=== PATIENT | female | born 1950 | race Caucasian/White ===

== ENCOUNTER 2022-02-28 10:31 | Outpatient (CLI) | payer MEDICARE, OTHER, SELFPAY ==
--- NOTE | 2022-02-28 11:00 | XR_ITS ---
WS: [id number] Exam: XR lumbar spine f/e only [id number] Date/Time of Exam: 02/28/2022 11:09 AM Reason For Exam: FALL/ACUTE LOW BACK PAIN No fracture or dislocation noted. Degenerative disc changes at all levels but most severe at L5-S1. M ild spondylosis. Facet arthropathy at all levels. No significant flexion or extension instability is demonstrated. Posterior bone spurring seen at the lower endplate of L1. XR/XR lumbar spine f/e only [id number] IMPRESSION: 1. No fracture or malalignment. No flexion or extension instability. 2. Moderately advanced degenerative disc changes most marked at L5-S1.
== END 2022-02-28 10:32 | disposition home or self-care (01) ==
PROVIDERS: Visit Provider Family Medicine
DX: M47.897 Other spondylosis, lumbosacral region (principal); M54.50 Low back pain, unspecified
CPT/HCPCS: 72120

== ENCOUNTER 2022-03-06 14:15 | Outpatient (CLI) | payer MEDICARE, OTHER, SELFPAY ==
--- NOTE | 2022-03-06 14:47 | XRR_ITS ---
PROCEDURE INFORMATION: Exam: XR Cervical Spine Exam date and time: 03/06/2022 2:59 PM Age: 72 years old Clinical indication: Injury or trauma; Fall; Blunt trauma; Injury details: History--pt fell x 1 wk ago. Neck pain in posterior side; Additional info: Neck pain/unspecified fall TECHNIQUE: Imaging protocol: Radiologic exam of the cervical spine. Views: 2 or 3 views. COMPARISON: No relevant prior studies available. FINDINGS: Bones/joints: Vertebral body height is maintained. No subluxation. Bones are diffusely osteopenic. Multilevel degenerative changes of varying severity in the visualized spine. 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 Soft tissues: No prevertebral soft tissue swelling. There are also subtle linear lucencies in the C6 and C7 vertebral bodies seen on the lateral image, it is uncertain whether this could be due to artifact from overlying soft tissues versus age-indeterminate vertebral body fractures. Lungs: Visualized lungs are clear. Vasculature: Atherosclerotic changes in the visualized arteries. XR/XR cervical spine 3V* [id number] IMPRESSION: 1. 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 2. There are also subtle linear lucencies in the C6 and C7 vertebral bodies seen on the lateral image, it is uncertain whether this could be due to artifact from overlying soft tissues versus age-indeterminate vertebral body fractures. CT scan of the cervical spine is recommended for further evaluation.Soft tissues: No radiopaque foreign body. 3. Multilevel degenerative changes of varying severity in the visualized spine. 4. Incidental/nonacute findings are listed in the report.
== END 2022-03-06 14:16 | disposition home or self-care (01) ==
LOC: RAD 14:36
PROVIDERS: PCP Family Medicine; Visit Provider Family Medicine
DX: S12.690A Other displaced fracture of seventh cervical vertebra, initial encounter for closed fracture (principal); W19.XXXA Unspecified fall, initial encounter; M47.892 Other spondylosis, cervical region; M54.2 Cervicalgia
CPT/HCPCS: 72040

== ENCOUNTER 2022-03-07 09:40 | Outpatient (CLI) | payer MEDICARE, OTHER, SELFPAY ==
--- NOTE | 2022-03-07 09:47 | CT_ITS ---
WS: [id number] CT CERVICAL SPINE TECHNIQUE: Noncontrast CT of the cervical spine with coronal and sagittal reformatted images. CLINICAL INFORMATION: NECK PAIN COMPARISON: March 06, 2022 radiograph DLP: 243.[address] scans at [facility] use at least one of these dose optimization techniques: automated e xposure control; mA and/or kV adjustment per patient size (includes targeted exams where dose is matc hed to clinical indication); or iterative reconstruction. FINDINGS: Mild cervical curve. Mild spondylitic changes. Disc osteophyte complexes worse at C5-C6 and C6-C7. En dplate osteophytic ridging. Chronic well-corticated C7 spinous process fracture corresponds to findin gs on the radiograph. No acute fractures. Slight fibrosis in the lung apices. Mild carotid bulb calci fication. C2-C3: Normal. C3-C4: Mild disc osteophyte ridging. Mild RIGHT foraminal narrowing. Moderate facet arthropathy. Tiny shallow central disc bulging. Mild central canal stenosis. C4-C5: Disc osteophyte complex with endplate ridging. Moderate facet arthropathy. Mild bilateral bony foraminal narrowing. C5-C6: Disc osteophyte complex with uncovertebral joint hypertrophy. Severe bilateral bony foraminal narrowing. Mild central canal stenosis. Moderate facet arthropathy. C6-C7: Disc osteophyte complex with endplate ridging. Uncovertebral joint hypertrophy. Severe bilater al bony foraminal narrowing. Mild central canal stenosis. C7-T1: No significant disc bulging. Spinal canal and foramen are patent. Visualized posterior nasopharynx: Normal. Prevertebral soft tissues: Normal. CT/CT cervical spin wo con* [id number] IMPRESSION: 1. No acute fractures. 2. Chronic well-corticated mid C7 spinous process fracture as seen on the radi ograph. 3. Spondylitic changes worse at C5-C6 and C6-C7 with mild central canal stenos is and severe bilateral bony foraminal narrowing.
== END 2022-03-07 09:41 | disposition home or self-care (01) ==
PROVIDERS: PCP Family Medicine; Visit Provider Nurse Practitioner Family
DX: S12.600A Unspecified displaced fracture of seventh cervical vertebra, initial encounter for closed fracture (principal); M47.812 Spondylosis without myelopathy or radiculopathy, cervical region; M48.02 Spinal stenosis, cervical region; M25.78 Osteophyte, vertebrae; X58.XXXA Exposure to other specified factors, initial encounter
CPT/HCPCS: 72125

== ENCOUNTER → 2022-03-30 09:31 | Outpatient (BNVA) | payer MEDICARE, OTHER, SELFPAY | PROVIDERS: PCP Family Medicine; Visit Provider Orthopaedic Surgery | DX: M47.22 Other spondylosis with radiculopathy, cervical region (principal) | CPT/HCPCS: 99203; 99204 ==

== ENCOUNTER 2022-04-20 10:14 | Emergency (ER) | payer MEDICARE, OTHER, SELFPAY ==
--- NOTE | 2022-04-20 10:32 | XR_ITS ---
WS: [id number] Exam: XR shoulder RT min 2V* [id number] Date/Time of Exam: 04/20/2022 10:34 AM Reason For Exam: trauma There is a comminuted fracture of the surgical neck and head of the humerus. There is avulsion of the greater tuberosity. No other fractures are noted. No dislocation. Hypertrophic spurring along the in ferior margin of the distal clavicle and acromion. Normal soft tissues. XR/XR shoulder RT min 2V* [id number] IMPRESSION: 1. Comminuted fracture of the surgical neck and head of the humerus. Mild media l displacement of the humeral neck. No dislocation.
--- NOTE | 2022-04-20 10:32 | XR_ITS ---
WS: [id number] Exam: [place] [id number] Date/Time of Exam: 04/20/2022 10:34 AM Reason For Exam: trauma Comminuted fracture of the surgical neck and head of the humerus is noted. Mild medial displacement o f the humeral neck. The remainder of the humerus is intact. No dislocation. XR/[place] [id number] IMPRESSION: 1. Comminuted fracture the proximal humerus as noted above. The remainder of th e humerus is intact.
[2022-04-20 10:34] VITALS: BP 172/65; PULSE 64; RESP 18; O2SAT 98
[2022-04-20 10:35] VITALS: BP 178/60; PULSE 72; RESP 18; TEMP 36.7; O2SAT 98
[2022-04-20 10:37] VITALS: PULSE 65
--- NOTE | 2022-04-20 10:56 | ED_ITS ---
HPI - Extremity Problem General: Chief complaint: Extremity Injury, Upper Stated complaint: fall,shoulder/arm pain Time Seen by Provider: 04/20/22 10:15 Source: patient Mode of arrival: ambulatory History of Present Illness: 70-year-old female presents emergency room from home. She is try to get something out of a closet off and upper shelf lost her balance started to fall she caught her self with outstretched hands broke part of her fall with her left hand then went down on an outstretched right arm is complaining of pain that she localizes to the shoulder. She is able to move at the elbow and the wrist. She is not able to extend or AB duct at all at the shoulder. Denies striking her head no loss of consciousness no neck or head injury. She said she felt a popping heard a popping sensation in her right shoulder. MD Complaint: joint pain Onset (ago): minute(s) Pain Consistency: constant Location: right and upper extremity (Shoulder) Quality: sharp Radiation: proximal Associated symptoms: Deny arthralgias, chest pain, fever(s), myalgias, rash or short of breath Review of Systems Const: Denies: fever(s), chills, fatigue or malaise ENMT: Denies: throat pain, ear or mastoid pain, nasal discharge or nasal congestion Card: Denies: chest pain or palpitations Resp: Denies: dyspnea, productive cough or non-productive cough GI: Denies: abdominal pain, nausea, vomiting, hematemesis, coffee ground emesis, diarrhea, constipation, bloating, hematochezia or melena : Denies: flank pain, difficulty voiding, dysuria, urinary frequency or urinary urgency Musc: Reports: joint pain (Right shoulder) Skin/Breast: Denies: rash or pruritus PFS ED PFSH: Social History (Updated 04/20/22 @ 10:58 by Indra Michelle DO) Smoking and tobacco status: current every day smoker Physical Exam Const: COMMON NORMALS: no acute distress GENERAL APPEARANCE: cooperative and comfortable ORIENTATION/CONSCIOUSNESS: Yes awake, Yes oriented to person, Yes oriented to place and Yes oriented to time HENMT: COMMON NORMALS: normocephalic, atraumatic and hearing grossly normal bilaterally HEAD & SCALP: normocephalic and atraumatic Eye: COMMON NORMALS: Equal, round and reactive pupils present, EOMs intact bilaterally, conjunctivae normal and no scleral icterus CONJUNCTIVA: Yes conjunctivae normal PUPIL: Yes Equal, round and reactive pupils present Neck/C-Spine: COMMON NORMALS: full ROM, no lymphadenopathy, supple and no JVD Resp: COMMON NORMALS: normal respiratory effort, No retractions, No use of accessory muscles and clear to auscultation bilaterally AUSCULTATION: clear to auscultation bilaterally Cardio: COMMON NORMALS: no JVD, regular rate, regular rhythm and No murmurs present (Cardio) RATE: regular rate RHYTHM: regular rhythm GI: COMMON NORMALS: Soft to palpation and No hepatosplenomegaly present AUSCULTATION: Yes normoactive bowel sounds PALPATION: Yes Soft to palpation, No Tenderness to palpation present (GI), No Guarding due to palpation present (GI) and Yes No hepatosplenomegaly present Extremity: OTHER: Right upper extremity examined on palpation the right shoulder is exquisitely painful and believes she has an anterior shoulder dislocation no pain with palpation of the humerus at the elbow forearm or wrist neurovascularly distally she is intact. Cervical spine cleared on physical exam. Neuro: SENSORIUM/ORIENTATION: Yes oriented to person, Yes oriented to place and Yes oriented to time Skin: COMMON NORMALS: no rashes or lesions noted GENERAL SKIN EXAM: no rashes or lesions noted Course Vital Signs: Vital signs: Vital Signs Temperature 98.0 F 04/20/22 10:35 Pulse Rate 65 04/20/22 10:37 Respiratory Rate 16 04/20/22 11:03 Blood Pressure 178/60 04/20/22 10:35 Pulse Oximetry 100 04/20/22 11:03 Oxygen Delivery Me thod 04/20/22 10:35 MDM - Extremity (Nontraumatic) Medical Decision Making Proximal humerus fracture. Shoulder immobilizer referral to Ortho pain medicines. Discussed with the patient. Medical Records I reviewed the patient's medical records. Lab Data I reviewed the patient's lab results. Radiology Impressions Humerus X-Ray 04/20/22 10:32 IMPRESSION: 1. Comminuted fracture the proximal humerus as noted above. The remainder of the humerus is intact. Shoulder X-Ray 04/20/22 10:32 IMPRESSION: 1. Comminuted fracture of the surgical neck and head of the humerus. Mild medial displacement of the humeral neck. No dislocation. Discharge Plan Discharge Patient Disposition: Home Clinical Impression: Fracture of humerus Prescriptions: New hydrocodone-acetaminophen 5-325 mg tablet 1 tab PO Q6H PRN (Reason: pain) Qty: 20 0RF No Action No Known Home Medications Discharge Orders: Discharge ED (Routine); Ordered 04/20/22 Ordered By: Indra Michelle Referrals: Alondra Gibbs DO [Primary Care Provider] - Discharge Diet: Usual diet Discharge Activity: Limit activity as instructed Patient Instructions: Opioid Safety, Pain Management Activity Restrictions/Additional Instructions: Found to have a proximal humerus fracture. These fractures are treated by immobilization with a shoulder immobilizer and early follow-up with orthopedics along with early physical therapy. Use pain medicine prescribed wear shoulder immobilizer except when bathing. Do not move at the shoulder until released by orthopedics. 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
[2022-04-20] MEDS: ondansetron 2 mg/ML SDV 2 mL 4 MG IVP (11:01)
[2022-04-20 11:03] VITALS: RESP 16; O2SAT 100
[2022-04-20] MEDS: morphine 4 mg/mL SDV 1 mL IVP (11:03)
== END 2022-04-20 11:30 | disposition home or self-care (01) ==
PROVIDERS: Emergency Provider Family Medicine; PCP Family Medicine
DX: S42.291A Other displaced fracture of upper end of right humerus, initial encounter for closed fracture (principal); S42.211A Unspecified displaced fracture of surgical neck of right humerus, initial encounter for closed fracture; F17.210 Nicotine dependence, cigarettes, uncomplicated; W19.XXXA Unspecified fall, initial encounter
CPT/HCPCS: 73030; 73060; 99283; J2270; J2405

== ENCOUNTER 2022-04-26 10:43 | Outpatient (CLI) | payer MEDICARE, OTHER, SELFPAY | END 2022-04-26 10:44 | disposition home or self-care (01) | LOC: SPT 10:44 | PROVIDERS: PCP Family Medicine; Visit Provider Orthopaedic Surgery | DX: Z46.89 Encounter for fitting and adjustment of other specified devices (principal); S42.301D Unspecified fracture of shaft of humerus, right arm, subsequent encounter for fracture with routine healing; X58.XXXD Exposure to other specified factors, subsequent encounter | CPT/HCPCS: 23600; 97760; A4565 ==

== ENCOUNTER 2022-05-05 01:00 | Outpatient (CLI) | payer MEDICARE, OTHER, SELFPAY | END 2022-05-05 23:00 | disposition home or self-care (01) | LOC: RAD 06-12 21:32 | PROVIDERS: PCP Family Medicine; Visit Provider Nurse Practitioner Family | DX: S42.211A Unspecified displaced fracture of surgical neck of right humerus, initial encounter for closed fracture (principal); X58.XXXA Exposure to other specified factors, initial encounter | CPT/HCPCS: 73030; 99214 ==

== ENCOUNTER 2022-05-29 12:06 | Outpatient (CLI) | payer MEDICARE, OTHER, SELFPAY ==
--- NOTE | 2022-05-29 13:00 | MR_ITS ---
WS: [id number] MRI CERVICAL SPINE NONCONTRAST TECHNIQUE: Sagittal T1, T2 and STIR imaging. Axial T2, gradient, and fiesta imaging. CLINICAL INFORMATION: neck pain COMPARISON: CT cervical March 07, 2022 FINDINGS: Straightening of the normal cervical lordosis. Mild disc bulging worse at C5-C6 and C6-C7. Cord signa l is normal. C2-C3: Mild facet arthropathy. Spinal canal and foramen are patent. C3-C4: Mild disc osteophyte complex with endplate ridging. Mild facet arthropathy. Mild RIGHT and no significant LEFT foraminal narrowing. C4-C5: Mild disc osteophytic ridging. Slight effacement of ventral thecal sac. Moderate facet arthrop athy. Mild bilateral bony foraminal narrowing LEFT greater than RIGHT. C5-C6: Disc osteophyte complex with endplate ridging. Mild central canal stenosis with slight indenta tion on cervical cord. Moderate to severe bilateral bony foraminal narrowing. Moderate facet arthropa thy. C6-C7: Disc osteophyte complex with endplate ridging. Shallow central protrusion with mild central ca nal stenosis. Moderate to severe bilateral bony foraminal narrowing. C7-T1: Disc osteophyte complex eccentric to the LEFT. Mild LEFT and no significant RIGHT foraminal na rrowing. Spinal canal is patent. Visualized brain stem structures: Normal. Prevertebral soft tissues: Normal. MR/MR cervical spin wo con* [id number] IMPRESSION: 1. Straightening of the normal cervical lordosis. Cord signal is normal. 2. Mild central canal stenosis C5-C6 and C6-C7 due to small disc osteophyte co mplexes/protrusions. 3. Disc osteophyte complex C5-C6 with indentation on cervical cord and mild ce ntral canal stenosis. 4. Moderate to severe bilateral bony foraminal narrowing C5-C6 and C6-C7. 5. Multilevel mild to moderate facet arthropathy described above.
== END 2022-05-29 12:07 | disposition home or self-care (01) ==
LOC: RAD 12:08
PROVIDERS: PCP Family Medicine; Visit Provider Orthopaedic Surgery
DX: M48.02 Spinal stenosis, cervical region (principal); M25.78 Osteophyte, vertebrae; M47.812 Spondylosis without myelopathy or radiculopathy, cervical region
CPT/HCPCS: 72141

== ENCOUNTER → 2022-06-08 08:36 | Outpatient (BNVA) | payer MEDICARE, OTHER, SELFPAY | PROVIDERS: PCP Family Medicine; Visit Provider Orthopaedic Surgery | DX: M48.02 Spinal stenosis, cervical region (principal) | CPT/HCPCS: 99214 ==

== ENCOUNTER → 2022-06-09 09:36 | Outpatient (BNVA) | payer MEDICARE, OTHER, SELFPAY | PROVIDERS: PCP Family Medicine; Visit Provider Nurse Practitioner Family | DX: S42.201A Unspecified fracture of upper end of right humerus, initial encounter for closed fracture (principal); X58.XXXA Exposure to other specified factors, initial encounter | CPT/HCPCS: 73030; 99024; 99213 ==

== ENCOUNTER → 2022-07-14 09:06 | Outpatient (BNVA) | payer MEDICARE, OTHER, SELFPAY | PROVIDERS: PCP Family Medicine; Visit Provider Nurse Practitioner Family | DX: S42.291A Other displaced fracture of upper end of right humerus, initial encounter for closed fracture (principal); X58.XXXA Exposure to other specified factors, initial encounter | CPT/HCPCS: 73030; 99214 ==

== ENCOUNTER → 2022-07-18 09:27 | Outpatient (BNVA) | payer MEDICARE, OTHER, SELFPAY | PROVIDERS: PCP Family Medicine; Visit Provider Orthopaedic Surgery | DX: M47.22 Other spondylosis with radiculopathy, cervical region (principal) | CPT/HCPCS: 99214 ==

== ENCOUNTER 2022-08-04 09:23 | Outpatient (RCR) | payer MEDICARE, OTHER, SELFPAY | END 2022-09-01 23:59 | disposition home or self-care (01) | LOC: SPT 09:23 | PROVIDERS: PCP Family Medicine; Visit Provider Nurse Practitioner Family | DX: S42.309D Unspecified fracture of shaft of humerus, unspecified arm, subsequent encounter for fracture with routine healing (principal); X58.XXXD Exposure to other specified factors, subsequent encounter | CPT/HCPCS: 97110; 97162 ==

== ENCOUNTER 2022-08-04 09:23 | Outpatient (RCR) | payer MEDICARE, OTHER, SELFPAY | END 2022-09-01 23:59 | disposition home or self-care (01) | LOC: SPT 09:23 | PROVIDERS: PCP Family Medicine; Visit Provider Orthopaedic Surgery | DX: M47.22 Other spondylosis with radiculopathy, cervical region (principal) | CPT/HCPCS: 97110; 97161 ==

== ENCOUNTER → 2022-08-08 10:30 | Outpatient (BNVA) | payer MEDICARE, OTHER, SELFPAY | PROVIDERS: PCP Family Medicine; Referring Provider Orthopaedic Surgery; Visit Provider Anesthesiology Pain Medicine | DX: M47.22 Other spondylosis with radiculopathy, cervical region (principal); M79.601 Pain in right arm; M79.602 Pain in left arm | CPT/HCPCS: 99204 ==

== ENCOUNTER → 2022-08-29 13:09 | Outpatient (BNVA) | payer MEDICARE, OTHER, SELFPAY | PROVIDERS: PCP Family Medicine; Visit Provider Anesthesiology Pain Medicine | DX: M54.12 Radiculopathy, cervical region (principal) | CPT/HCPCS: 62321; J1100 ==

== ENCOUNTER 2022-09-02 06:00 | Outpatient (RCR) | payer MEDICARE, OTHER, SELFPAY | END 2022-10-01 23:59 | disposition home or self-care (01) | LOC: SPT 06:00 | PROVIDERS: PCP Family Medicine; Visit Provider Nurse Practitioner Family | DX: S42.309D Unspecified fracture of shaft of humerus, unspecified arm, subsequent encounter for fracture with routine healing (principal); X58.XXXD Exposure to other specified factors, subsequent encounter | CPT/HCPCS: 97110 ==

== ENCOUNTER → 2022-09-05 10:18 | Outpatient (BNVA) | payer MEDICARE, OTHER, SELFPAY | PROVIDERS: PCP Family Medicine; Visit Provider Orthopaedic Surgery | DX: M47.22 Other spondylosis with radiculopathy, cervical region (principal); M25.511 Pain in right shoulder | CPT/HCPCS: 99213 ==

== ENCOUNTER → 2022-09-12 12:45 | Outpatient (BNVA) | payer MEDICARE, OTHER, SELFPAY | PROVIDERS: PCP Family Medicine; Visit Provider Anesthesiology Pain Medicine | DX: M54.12 Radiculopathy, cervical region (principal) | CPT/HCPCS: 62321; J1100 ==

== ENCOUNTER → 2022-09-20 13:13 | Outpatient (BNVA) | payer MEDICARE, OTHER, SELFPAY | PROVIDERS: PCP Family Medicine; Referring Provider Orthopaedic Surgery; Visit Provider Orthopaedic Surgery | DX: Z96.653 Presence of artificial knee joint, bilateral (principal); Z96.642 Presence of left artificial hip joint | CPT/HCPCS: 73502; 73560; 73565; 99202 ==

== ENCOUNTER → 2022-09-26 10:41 | Outpatient (BNVA) | payer MEDICARE, OTHER, SELFPAY | PROVIDERS: PCP Family Medicine; Visit Provider Anesthesiology Pain Medicine | DX: M47.22 Other spondylosis with radiculopathy, cervical region (principal) | CPT/HCPCS: 99214 ==

== ENCOUNTER 2022-10-02 06:00 | Outpatient (RCR) | payer MEDICARE, OTHER, SELFPAY | END 2022-10-13 23:59 | disposition home or self-care (01) | LOC: SPT 06:00 | PROVIDERS: PCP Family Medicine; Visit Provider Nurse Practitioner Family | DX: M47.22 Other spondylosis with radiculopathy, cervical region (principal) | CPT/HCPCS: 97110 ==

== ENCOUNTER → 2022-10-10 13:50 | Outpatient (BNVA) | payer MEDICARE, OTHER, SELFPAY | PROVIDERS: PCP Family Medicine; Visit Provider Anesthesiology Pain Medicine | DX: M47.812 Spondylosis without myelopathy or radiculopathy, cervical region (principal) | CPT/HCPCS: 64490; 64491; 64492; J3490 ==

== ENCOUNTER → 2022-10-23 13:15 | Outpatient (BNVA) | payer MEDICARE, OTHER, SELFPAY | PROVIDERS: PCP Family Medicine; Visit Provider Podiatrist Foot & Ankle Surgery | DX: M21.611 Bunion of right foot (principal); M20.41 Other hammer toe(s) (acquired), right foot; L60.3 Nail dystrophy; M21.41 Flat foot [pes planus] (acquired), right foot; M21.42 Flat foot [pes planus] (acquired), left foot; M19.071 Primary osteoarthritis, right ankle and foot | CPT/HCPCS: 73630; 99204 ==

== ENCOUNTER → 2022-10-31 09:05 | Outpatient (BNVA) | payer MEDICARE, OTHER, SELFPAY | PROVIDERS: PCP Family Medicine; Visit Provider Anesthesiology Pain Medicine | DX: M47.22 Other spondylosis with radiculopathy, cervical region (principal) | CPT/HCPCS: 99214 ==

== ENCOUNTER → 2022-11-14 12:39 | Outpatient (BNVA) | payer MEDICARE, OTHER, SELFPAY | PROVIDERS: PCP Family Medicine; Visit Provider Anesthesiology Pain Medicine | DX: M47.812 Spondylosis without myelopathy or radiculopathy, cervical region (principal) | CPT/HCPCS: 64633; 64634; J1030 ==

== ENCOUNTER → 2022-12-12 09:58 | Outpatient (BNVA) | payer MEDICARE, OTHER, SELFPAY | PROVIDERS: PCP Family Medicine; Visit Provider Anesthesiology Pain Medicine | DX: M47.22 Other spondylosis with radiculopathy, cervical region (principal); M47.812 Spondylosis without myelopathy or radiculopathy, cervical region; M48.02 Spinal stenosis, cervical region | CPT/HCPCS: 99214 ==

== ENCOUNTER → 2023-01-30 14:11 | Outpatient (BNVA) | payer MEDICARE, OTHER, SELFPAY | PROVIDERS: PCP Family Medicine; Visit Provider Anesthesiology Pain Medicine | DX: M47.812 Spondylosis without myelopathy or radiculopathy, cervical region (principal) | CPT/HCPCS: 64490; 64491; 64492; J3490 ==

== ENCOUNTER → 2023-02-14 10:01 | Outpatient (BNVA) | payer MEDICARE, OTHER, SELFPAY | PROVIDERS: PCP Family Medicine; Visit Provider Anesthesiology Pain Medicine | DX: M47.22 Other spondylosis with radiculopathy, cervical region | CPT/HCPCS: 99214 ==

== ENCOUNTER → 2023-03-06 14:18 | Outpatient (BNVA) | payer MEDICARE, OTHER, SELFPAY | PROVIDERS: PCP Family Medicine; Visit Provider Anesthesiology Pain Medicine | DX: M47.812 Spondylosis without myelopathy or radiculopathy, cervical region (principal) | CPT/HCPCS: 64633; 64634; J1030 ==

== ENCOUNTER → 2023-03-19 12:47 | Outpatient (BNVA) | payer MEDICARE, OTHER, SELFPAY | PROVIDERS: PCP Family Medicine; Visit Provider Anesthesiology Pain Medicine | DX: M79.18 Myalgia, other site (principal); M47.22 Other spondylosis with radiculopathy, cervical region | CPT/HCPCS: 20553; 99213; J1030; J3490 ==

== ENCOUNTER → 2023-04-19 09:32 | Outpatient (BNVA) | payer MEDICARE, OTHER, SELFPAY | PROVIDERS: PCP Family Medicine; Visit Provider Anesthesiology Pain Medicine | DX: M47.22 Other spondylosis with radiculopathy, cervical region; M48.02 Spinal stenosis, cervical region | CPT/HCPCS: 99214 ==

== ENCOUNTER → 2023-05-21 10:20 | Outpatient (BNVA) | payer MEDICARE, OTHER, SELFPAY | PROVIDERS: PCP Family Medicine; Visit Provider Anesthesiology Pain Medicine | DX: M47.22 Other spondylosis with radiculopathy, cervical region; M48.02 Spinal stenosis, cervical region | CPT/HCPCS: 99214 ==

== ENCOUNTER 2023-06-13 13:36 | Outpatient (RCR) | payer MEDICARE, OTHER, SELFPAY | END 2023-07-04 23:59 | disposition home or self-care (01) | LOC: SPT 13:36 | PROVIDERS: PCP Family Medicine; Visit Provider Anesthesiology Pain Medicine | DX: M25.519 Pain in unspecified shoulder (principal) | CPT/HCPCS: 97113; 97161 ==

== ENCOUNTER → 2023-06-21 09:02 | Outpatient (BNVA) | payer MEDICARE, OTHER, SELFPAY | PROVIDERS: PCP Family Medicine; Visit Provider Anesthesiology Pain Medicine | DX: M19.011 Primary osteoarthritis, right shoulder; M47.22 Other spondylosis with radiculopathy, cervical region; M48.02 Spinal stenosis, cervical region; M47.812 Spondylosis without myelopathy or radiculopathy, cervical region | CPT/HCPCS: 20610; 99214; J1030; J3490 ==

== ENCOUNTER 2023-07-05 06:00 | Outpatient (RCR) | payer MEDICARE, OTHER, SELFPAY | END 2023-07-27 23:59 | disposition home or self-care (01) | LOC: SPT 06:00 | PROVIDERS: PCP Family Medicine; Visit Provider Anesthesiology Pain Medicine | DX: M47.816 Spondylosis without myelopathy or radiculopathy, lumbar region (principal) | CPT/HCPCS: 97113; 97530 ==

== ENCOUNTER → 2023-07-24 08:46 | Outpatient (BNVA) | payer MEDICARE, OTHER, SELFPAY | PROVIDERS: PCP Family Medicine; Visit Provider Anesthesiology Pain Medicine | DX: M47.22 Other spondylosis with radiculopathy, cervical region (principal); M48.02 Spinal stenosis, cervical region | CPT/HCPCS: 99214 ==

== ENCOUNTER 2023-08-21 08:03 | Outpatient (CLI) | payer MEDICARE, OTHER, SELFPAY ==
--- NOTE | 2023-08-21 08:45 | MR_ITS ---
WS: [id number] MRI LUMBAR SPINE NONCONTRAST HISTORY: M54.16 - Radiculopathy, lumbar region COMPARISON: None available. TECHNIQUE: Sagittal and axial multisequence imaging is submitted. L1 retrolisthesis by 2.2 mm. Disc spaces are very mildly narrowed and desiccated. No fractures or marrow edema. Conus terminates normally at L1-2 disc level. L1-L2: Mild osteophytic ridging and disc bulging with ligamentum flavum and facet arthritis. There is mild disc and osteophyte encroachment upon the subarticular recesses. Focal LEFT subarticular recess disc protrusion. Combination of findings resulting in mild central, bilateral subarticular recess an d foraminal stenosis. Slightly greater contact on the traversing LEFT L2 nerve root. L2-L3: Mild annular disc bulging and osteophytic ridging. Small LEFT paracentral disc protrusion exte nds just below the disc level. Mild facet and ligamentum flavum arthritis. Mild bilateral subarticula r recess and foraminal stenosis. L3-L4: Mild annular disc bulging with very minimal contact on the traversing L4 nerve roots. Mild fac et arthritis. Mild LEFT foraminal stenosis. L4-L5: Diffuse annular disc bulging with osteophytic ridging. Mild facet and ligamentum flavum hypert rophy. Very slight narrowing of the RIGHT subarticular recess. Mild RIGHT foraminal stenosis. L5-S1: Mild annular disc bulging with facet arthritis. No significant stenosis. Paravertebral soft tissues are negative. IMPRESSION: 1. No acute lumbar spine fracture. 2. Slight retrolisthesis of L1. 3. L1-2: Mild central, bilateral subarticular recess and foraminal stenosis. Slightly greater contac t on the traversing LEFT L2 nerve root. 4. L2-3: Mild bilateral subarticular recess and foraminal stenosis. 5. L3-4: Very minimal disc contact on the traversing L4 nerve roots and mild LEFT foraminal stenosis . 6. L4-5: Mild RIGHT foraminal and subarticular recess stenosis at L4-5.
== END 2023-08-21 08:04 | disposition home or self-care (01) ==
LOC: RAD 08:03
PROVIDERS: PCP Family Medicine; Visit Provider Anesthesiology Pain Medicine
DX: M54.16 Radiculopathy, lumbar region (principal); M43.16 Spondylolisthesis, lumbar region; M48.061 Spinal stenosis, lumbar region without neurogenic claudication
CPT/HCPCS: 72148

== ENCOUNTER → 2023-08-22 10:45 | Outpatient (BNVA) | payer MEDICARE, OTHER, SELFPAY | PROVIDERS: PCP Family Medicine; Visit Provider Anesthesiology Pain Medicine | DX: M47.22 Other spondylosis with radiculopathy, cervical region; M48.02 Spinal stenosis, cervical region | CPT/HCPCS: 99214 ==

== ENCOUNTER → 2023-08-27 10:43 | Outpatient (BNVA) | payer MEDICARE, OTHER, SELFPAY | PROVIDERS: PCP Family Medicine; Referring Provider Anesthesiology Pain Medicine; Visit Provider Specialist | DX: S42.201D Unspecified fracture of upper end of right humerus, subsequent encounter for fracture with routine healing; X58.XXXD Exposure to other specified factors, subsequent encounter | CPT/HCPCS: 73030; 99204 ==

== ENCOUNTER → 2023-09-19 09:51 | Outpatient (BNVA) | payer MEDICARE, OTHER, SELFPAY | PROVIDERS: PCP Family Medicine; Visit Provider Podiatrist Foot & Ankle Surgery | DX: M20.41 Other hammer toe(s) (acquired), right foot; M20.42 Other hammer toe(s) (acquired), left foot; L60.3 Nail dystrophy; M21.41 Flat foot [pes planus] (acquired), right foot; M21.42 Flat foot [pes planus] (acquired), left foot; M21.619 Bunion of unspecified foot; M19.071 Primary osteoarthritis, right ankle and foot; M19.072 Primary osteoarthritis, left ankle and foot | CPT/HCPCS: 73630; 99213 ==

== ENCOUNTER → 2023-09-24 08:52 | Outpatient (BNVA) | payer MEDICARE, OTHER, SELFPAY | PROVIDERS: PCP Family Medicine; Visit Provider Anesthesiology Pain Medicine | DX: M47.22 Other spondylosis with radiculopathy, cervical region (principal); M54.50 Low back pain, unspecified | CPT/HCPCS: 99214 ==

== ENCOUNTER 2023-10-23 15:12 | Outpatient (CLI) | payer MEDICARE, OTHER, SELFPAY ==
--- NOTE | 2023-10-23 16:45 | MR_ITS ---
WS: [id number] MRI RIGHT SHOULDER NONCONTRAST TECHNIQUE: Sagittal T2, coronal T1, T2 and proton density imaging. Axial gradient PDE imaging. CLINICAL INFORMATION: right shoulder pain, previous fracture COMPARISON: Radiograph 08/27/2023 FINDINGS: Moderate to advanced arthritis AC joint with moderate downsloping acromion. Degenerative edema at the AC joint. Slight subacromial spurring. Prior healed fracture deformity at the humeral neck unchanged since the prior radiograph. Small amount of residual edema at the healed fracture site. Mild narrowi ng of the subacromial space. Chronic thinning of the supraspinatus tendon distally with tendinopathy. Small intrasubstance and undersurface tear distal supraspinatus. Normal infraspinatus. Normal teres minor. Subscapularis appears intact. Tiny biceps tendon or remnant in the bicipital groove. Tiny intra-artic ular biceps tendon. Moderate degenerative narrowing of the glenohumeral articulation. Normal bone marrow signal in the gl enoid. Degenerative fraying of the glenoid labrum. Somewhat diminutive joint capsule with thickening along the axillary recess. Recommend correlation for adhesive capsulitis. MR/MR shoulder RT wo con* [id number] IMPRESSION: 1. Healed fracture deformity involving the humeral neck unchanged since the pr ior radiograph. Small amount of residual edema at the fracture site. No evidenc e of new or acute fracture. 2. Moderate degenerative arthritis AC joint with slight subacromial spurring a nd narrowing of the subacromial space. 3. Tendinopathy supraspinatus with chronic thinning and small intrasubstance a nd undersurface tears. No tendon retraction. 4. Tiny biceps tendon within the bicipital groove. 5. Visibly small shoulder capsule with thickening along the axillary recess. R ecommend correlation for adhesive capsulitis.
== END 2023-10-23 15:13 | disposition home or self-care (01) ==
LOC: RAD 15:13
PROVIDERS: PCP Family Medicine; Visit Provider Specialist
DX: M19.011 Primary osteoarthritis, right shoulder (principal); M25.711 Osteophyte, right shoulder; S42.201P Unspecified fracture of upper end of right humerus, subsequent encounter for fracture with malunion
CPT/HCPCS: 73221

== ENCOUNTER → 2023-10-24 08:33 | Outpatient (BNVA) | payer MEDICARE, OTHER, SELFPAY | PROVIDERS: PCP Family Medicine; Visit Provider Anesthesiology Pain Medicine | DX: M47.22 Other spondylosis with radiculopathy, cervical region (principal); M48.02 Spinal stenosis, cervical region; M54.50 Low back pain, unspecified | CPT/HCPCS: 99214 ==

== ENCOUNTER 2023-10-29 08:22 | Emergency (ER) | payer MEDICARE, OTHER, SELFPAY ==
[2023-10-29 08:29] VITALS: BP 154/89; PULSE 85; RESP 16; TEMP 36.7; O2SAT 96
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
[2023-10-29] MEDS: methylPREDNISolone sod succ 125 mg/2 mL INJ IVP (08:37)
[2023-10-29] MEDS: diphenhydrAMINE 50 mg/mL SDV 1mL IVP (08:37)
[2023-10-29] MEDS: famotidine 20 mg/2 mL INJ 40 MG IVP (08:38)
[2023-10-29 09:30] VITALS: BP 150/77; PULSE 67; O2SAT 95
[2023-10-29] MEDS: dexamethasone 10 mg/mL INJ IVP (09:55)
[2023-10-29 10:03] VITALS: BP 138/76; PULSE 62; O2SAT 96
== END 2023-10-29 10:04 | disposition home or self-care (01) ==
PROVIDERS: Emergency Provider Emergency Medicine; PCP Family Medicine
DX: L25.9 Unspecified contact dermatitis, unspecified cause (principal); L50.9 Urticaria, unspecified; Z87.891 Personal history of nicotine dependence
CPT/HCPCS: 96374; 96375; 99284; J1100; J1200; J2919; J3490

== ENCOUNTER → 2023-11-13 10:30 | Outpatient (BNVA) | payer MEDICARE, OTHER, SELFPAY | PROVIDERS: PCP Family Medicine; Visit Provider Anesthesiology Pain Medicine | DX: M25.552 Pain in left hip (principal); M54.2 Cervicalgia; M54.9 Dorsalgia, unspecified; M47.22 Other spondylosis with radiculopathy, cervical region | CPT/HCPCS: 73502; 99214 ==

== ENCOUNTER → 2023-12-10 08:45 | Outpatient (BNVA) | payer MEDICARE, OTHER, SELFPAY | PROVIDERS: PCP Family Medicine; Visit Provider Specialist | DX: M19.011 Primary osteoarthritis, right shoulder (principal) | CPT/HCPCS: 99213 ==

== ENCOUNTER → 2023-12-11 08:05 | Outpatient (BNVA) | payer MEDICARE, OTHER, SELFPAY | PROVIDERS: PCP Family Medicine; Visit Provider Orthopaedic Surgery | DX: M54.9 Dorsalgia, unspecified (principal); M54.50 Low back pain, unspecified | CPT/HCPCS: 72110; 99214 ==

== ENCOUNTER → 2023-12-26 09:44 | Outpatient (BNVA) | payer MEDICARE, OTHER, SELFPAY | PROVIDERS: PCP Family Medicine; Visit Provider Podiatrist Foot & Ankle Surgery | DX: L60.3 Nail dystrophy; M21.611 Bunion of right foot; M21.612 Bunion of left foot; M20.41 Other hammer toe(s) (acquired), right foot; M21.41 Flat foot [pes planus] (acquired), right foot; M21.42 Flat foot [pes planus] (acquired), left foot; M19.071 Primary osteoarthritis, right ankle and foot | CPT/HCPCS: 99213 ==

== ENCOUNTER 2023-12-27 08:45 | Outpatient (CLI) | payer MEDICARE, OTHER, SELFPAY ==
--- NOTE | 2023-12-27 08:45 | MR_ITS ---
WS: [id number] MRI LUMBAR SPINE NONCONTRAST TECHNIQUE: Sagittal T1, T2 and STIR imaging. Axial T1 and T2 imaging. CLINICAL INFORMATION: low back pain COMPARISON: MRI 08/21/2023 FINDINGS: Mild lumbar curve. Disc space narrowing L1-2 and L5-S1. Slight retrolisthesis L1 on L2. L1-L2: Slight retrolisthesis. Mild disc bulging. Mild facet arthropathy. Foramen are patent. Slight n arrowing of the LEFT subarticular recess. L2-L3: Mild annular bulging. Mild facet arthropathy. Mild RIGHT foraminal narrowing. Slight narrowing of the LEFT subarticular recess. L3-L4: Mild annular bulging. Mild facet arthropathy. Mild LEFT foraminal narrowing. L4-L5: Mild annular bulging. Impingement RIGHT subarticular recess and traversing RIGHT L5 nerve root . Foramen are patent. Mild facet arthropathy. L5-S1: Shallow central protrusion. Mild facet arthropathy. Slight effacement of the ventral thecal sa c. Spinal canal and foramen are patent. Visualized pelvic bony structures: Normal. Paravertebral soft tissues: Normal. RIGHT renal cysts. MR/MR lumbar spine wo con* [id number] IMPRESSION: No remarkable changes compared to previous 1. Mild lumbar curve. No acute compression. No high-grade central canal stenos is. 2. Narrowing of the LEFT L1-2 and LEFT L2-3 subarticular recess similar to pre vious. 3. Mild annular bulging L4-5 with narrowing of the RIGHT greater than LEFT sub articular recess unchanged. 4. Shallow disc bulging L5-S1 with slight effacement of the ventral thecal sac and slight encroachment on the LEFT S1 nerve root unchanged. 5. Small LEFT foraminal protrusion L3-4 with mild LEFT foraminal narrowing unc hanged 6. Mild to moderate facet arthropathy L3-L5.
== END 2023-12-27 08:46 | disposition home or self-care (01) ==
PROVIDERS: PCP Family Medicine; Visit Provider Orthopaedic Surgery
DX: M99.63 Osseous and subluxation stenosis of intervertebral foramina of lumbar region (principal); M47.896 Other spondylosis, lumbar region; M54.16 Radiculopathy, lumbar region
CPT/HCPCS: 72148

== ENCOUNTER → 2024-01-15 08:27 | Outpatient (BNVA) | payer MEDICARE, OTHER, SELFPAY | PROVIDERS: PCP Family Medicine; Visit Provider Orthopaedic Surgery | DX: Z09 Encounter for follow-up examination after completed treatment for conditions other than malignant neoplasm (principal); M47.819 Spondylosis without myelopathy or radiculopathy, site unspecified | CPT/HCPCS: 95910; 99214 ==

== ENCOUNTER → 2024-02-18 08:54 | Outpatient (BNVA) | payer MEDICARE, OTHER, SELFPAY | PROVIDERS: PCP Family Medicine; Visit Provider Specialist | DX: M19.011 Primary osteoarthritis, right shoulder (principal) | CPT/HCPCS: 99213 ==

== ENCOUNTER 2024-03-16 10:49 | Emergency (ER) | payer MEDICARE, OTHER, SELFPAY ==
[2024-03-16 10:57] VITALS: BP 134/92; PULSE 79; RESP 15; TEMP 36.7; O2SAT 96; BMI 33.7
[2024-03-16] MEDS: methylPREDNISolone sod succ 125 mg/2 mL INJ IM (11:31)
[2024-03-16] MEDS: diphenhydrAMINE 50 mg/mL SDV 1mL IM (11:34)
[2024-03-16 11:36] VITALS: BP 145/89; PULSE 76; RESP 18; O2SAT 95
[2024-03-16 11:58] VITALS: BP 135/90; PULSE 70; O2SAT 96
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
== END 2024-03-16 12:01 | disposition home or self-care (01) ==
PROVIDERS: Emergency Provider Emergency Medicine; PCP Family Medicine
DX: T78.40XA Allergy, unspecified, initial encounter (principal); X58.XXXA Exposure to other specified factors, initial encounter
CPT/HCPCS: 96372; 99284; J1200; J2919

== ENCOUNTER → 2024-04-02 09:57 | Outpatient (BNVA) | payer MEDICARE, OTHER, SELFPAY | PROVIDERS: PCP Family Medicine; Visit Provider Podiatrist Foot & Ankle Surgery | DX: M20.41 Other hammer toe(s) (acquired), right foot; M20.42 Other hammer toe(s) (acquired), left foot; M21.612 Bunion of left foot; M21.611 Bunion of right foot; R73.09 Other abnormal glucose | CPT/HCPCS: 99213 ==

== ENCOUNTER → 2024-04-17 08:32 | Outpatient (BNVA) | payer MEDICARE, OTHER, SELFPAY | PROVIDERS: PCP Family Medicine; Visit Provider Podiatrist Foot & Ankle Surgery | DX: M20.41 Other hammer toe(s) (acquired), right foot (principal); M79.671 Pain in right foot; M21.611 Bunion of right foot | CPT/HCPCS: 20550; 28010; 28011 ==

== ENCOUNTER → 2024-05-15 09:08 | Outpatient (BNVA) | payer MEDICARE, OTHER, SELFPAY | PROVIDERS: PCP Family Medicine; Visit Provider Podiatrist Foot & Ankle Surgery | DX: M25.871 Other specified joint disorders, right ankle and foot (principal); M20.41 Other hammer toe(s) (acquired), right foot; M79.671 Pain in right foot; M24.574 Contracture, right foot; M21.612 Bunion of left foot; M21.611 Bunion of right foot | CPT/HCPCS: 99214 ==

== ENCOUNTER → 2024-05-30 07:36 | Day surgery (SDC) | payer MEDICARE, OTHER, SELFPAY ==
[2024-05-30] VITALS (8 sets, daily range): BP systolic 97–157; BP diastolic 55–95; PULSE 63–83; RESP 16–18; TEMP 36.1–36.4; O2SAT 94–100
--- NOTE | 2024-05-30 | XR_ITS ---
WS: [id number] Right foot, C-arm fluoroscopy, 05/30/2024 Clinical Data: CHASITY PICS Comparison: None. Findings: C-arm fluoroscopy views of the right first metatarsal and right great toe XR/XR foot RT 2V [id number] Impression: Fluoroscopic views of the right first metatarsal and right great toe.
[2024-05-30] MEDS: sodium chloride 0.9% 1,000 ML 30 ML IV (08:12)
[2024-05-30] MEDS: gabapentin 300 mg Capsule PO (08:15)
[2024-05-30] MEDS: CELEcoxib 200 mg Capsule 400 MG PO (08:15)
--- NOTE | 2024-05-30 08:16 | P.OP_ITS ---
Operative Report Date of procedure: May 30, 2024 Pre-op diagnosis: Hammer toe of right foot M20.41 Foot pain, right M79.671 Hammertoe of right foot M20.41 Contracture, right foot M24.574 Post-op diagnosis: Hammer toe of right foot M20.41 Foot pain, right M79.671 Hammertoe of right foot M20.41 Contracture, right foot M24.574 Procedure done: 1) right second hammertoe correction. CPT code 52316 2) right fourth hammertoe correction. CPT code 79680 3) right fifth hammertoe correction. CPT code 41175 4) right second flexor digitorum longus tendon transfer to extensor digitorum brevis. CPT code 82587 5) right third flexor digitorum longus tendon transfer to extensor digitorum brevis. CPT code 28518 Implants: 4-0 Vicryl, 4-0 nylon Specimens removed/disposition: None Pathology: none Surgeon: Terence Dale DPM Line Department Supervisor: Tonio Patrick Estimated blood loss: 2 See intraoperative documentation. IV fluids: See intraoperative documentation Urine output: 0 Complications: None Brief History: 74-year-old female with history of toe arthritis presenting with complaints of hammertoe deformities in the right foot's second, fourth, and fifth toes. The patient experiences pain and reduced toe flexibility, particularly when wearing work boots. There is notable arthritis affecting the joints, contributing to stiffness and discomfort. Currently, the remaining toe joints require surgical attention due to mobility impairment and subsequent pressure symptoms caused by hammertoe. 1. Hammertoe Surgical correction of hammertoe deformities on the right foot is planned for the second, fourth, and fifth toes. The procedure will utilize implants to m aintain correct alignment. The patient was informed of surgical recovery expectations and the aim to resolve footwear-related discomfort. The plan is to proceed with surgery on May 30, with considerations for not taking methylphenidate a week prior to surgery. 2. Arthritis Of Toe Joint Surgical intervention is recommended due to joint stiffness and arthritis, which limit non-surgical treatment efficacy. The patient is scheduled for outpatient surgery to straighten the toes and alleviate the symptoms associated with arthritis. The patient was advised of the need for extensive recovery and the possibility of a challenging post-operative period. - Discontinue methylphenidate one week before surgery. - Prepare for a recovery period of six weeks post-surgery. - For the first two weeks post-surgery, prioritize rest and minimize activity. - Transition to walking in stiff boots after two weeks or as advised by the care team. - Follow pre-surgery fasting instructions - no food or drink after midnight before the procedure. - Plan post-operative assistance for daily activities due to limited mobility. - Expect a call to confirm surgery details on May 29. The decision to proceed with surgical correction of the patient's right foot hammertoe deformities is based on the severity of symptoms such as stiffness, pain, and occupational restrictions due to improper toe alignment. Conservative methods, including tendon release, were deemed inadequate due to arthritic joint changes. Surgical intervention will provide definitive correction and improve the patient's functional capacity, allowing for a return to desired activities by the spring. The surgery is considered necessary to address both arthritic involvement and the structural deformity. Careful scheduling post- holiday seasons aligns with the patient's lifestyle needs and preferences. Adequate pain management and post-operative care have been factored into the recovery plan, ensuring an optimal outcome. I reviewed at length with the patient, the risks, potential complications, benefits, alternatives, expectations, and typical outcomes associated with the surgery. The risks and potential complications were explained in detail, including but not limited to infection, wound dehiscence or soft tissue complications, bleeding and hematoma, chronic edema, neuritis or nerve damage producing numbness or chronic pain, CRPS, failure to relieve pain or worsening pain, thick / painful / unsightly scar, limited motion / stiffness, malposition, delayed union, malunion, or nonunion, fracture, reaction to implants, anesthetic complications, venous thromboembolism, and deformity recurrence. I discussed the notion of no regrets with the patient as it pertains to complications and outcomes. The patient seemed to understand the nature of the proposed care and required convalescence. They asked appropriate questions, answered to their satisfaction. They are aware no guarantees can be made as to a satisfactory outcome and they understand there may be other possible unforeseen complications or outcomes not listed here that will be treated accordingly if they arise. There were no written or implied guarantees given to the patient. They gave informed consent to proceed. Procedure: 1) right second hammertoe correction. CPT code 22217 2) right fourth hammertoe correction. CPT code 83604 3) right fifth hammertoe correction. CPT code 51640 4) right second flexor digitorum longus tendon transfer to extensor digitorum brevis. CPT code 37950 5) right third flexor digitorum longus tendon transfer to extensor digitorum brevis. CPT code 11993
--- NOTE | 2024-05-30 08:16 | P.HPUD_ITS ---
Surgery/Procedure H&P Update DATE OF PROCEDURE: May 30, 2024 DATE H&P PERFORMED: 05/15/24 H&P UPDATE INFORMATION: I have reviewed H&P completed within last 30 days, I have examined patient prior to procedure, No changes to prior documentation and H&P is in [facility] EMR on date indicated PREOP DIAGNOSIS: right foot tendon contractures and hammertoes. PLANNED PROCEDURE: Operation Date: 05/30/24 09:10 Proposed Procedures p Right second hammertoe correction, Right fourth hammertoe correction, Right fifth hammertoe correction(Right) - Terence Dale DPM s Right second flexor digitorum longus tendon transfer to extensor digitorum brevis and Right third flexor digitorum longus tendon transfer to extensor digitorum brevis.(Right) - Terence Dale DPM
--- NOTE | 2024-05-30 08:21 | ANES.PREANE2 ---
Pre-Anesthetic Assessment Height/Weight: Height 1.65 m Weight 94.801 kg Temp Pulse Resp BP Pulse Ox O2 Del Method 97.6 F 83 16 157/95 97 Room Air 05/30/24 07:46 05/30/24 07:46 05/30/24 07:46 05/30/24 07:46 05/30/24 07:46 05/30/24 07:48 Preop Diagnosis: right foot tendon contractures and hammertoes. Operation Date: 05/30/24 09:10 Proposed Procedures p Right second hammertoe correction, Right fourth hammertoe correction, Right fifth hammertoe correction(Right) - Terence Dale DPM s Right second flexor digitorum longus tendon transfer to extensor digitorum brevis and Right third flexor digitorum longus tendon transfer to extensor digitorum brevis.(Right) - Terence Dale DPM Familial anesthetic complications: None Was Beta Robert taken within 24 hours: N/A Was Clonidine taken within 24 hours: N/A Last intake: Intake Last Liquid Date 05/29/24 Last Liquid Time 21:00 Last Solid Date 05/29/24 Last Solid Time 21:00 Social No alcohol and No tobacco Exam alert, oriented x 3, clear to auscultation bilaterally and regular rate & rhythm Airway Mallampati: Class II Dentition: other (no teeth) Pulmonary Asthma Anesthetic Plan ASA status: 2 Anesthesia: MAC Risk of > 500 ml blood loss (7ml/kg in children): No Medications/Allergies Home Medications Medication Instructions Recorded Confirmed Last Taken Type duloxetine 60 mg capsule,delayed 60 mg PO BID 04/26/22 05/26/24 3 Months Ago History release (Cymbalta) ~02/25/24 methylphenidate HCl 5 mg tablet 5 mg PO DAILY 04/26/22 05/26/24 05/19/24 History (Ritalin) furosemide 20 mg tablet 20 mg PO DAILY 05/05/22 05/26/24 05/26/24 History albuterol sulfate 2.5 mg/3 mL 2.5 mg continuous nebulization PRN 04/15/23 05/26/24 1 Month Ago History (0.083 %) solution for nebulization PRN Wheezing ~04/26/24 extra depth orthopedic shoes with #1 ea 12/26/23 05/15/24 Unknown Rx custom molded accommodative orthotics Allergies Allergy/AdvReac Type Severity Reaction Status Date / Time Penicillins Allergy stomach Verified 05/30/24 07:47 vancomycin Allergy hallucinati Verified 05/30/24 07:47 ng Current Medications Generic Name Dose Route Start Last Admin Trade Name Freq PRN Reason Stop Dose Admin Sodium Chloride 1,000 mls @ 30 mls/hr 05/30/24 07:45 05/30/24 08:12 Sodium Chloride 0.9% IV 05/31/24 07:44 30 mls/hr .Q24H SPENSER Administration PFSH Anesthesia Social History Smoking and tobacco/nicotine status: never used tobacco/nicotine Alcohol intake: never Marital status: / Data Anesthesia Cardiac Studies: No Data to Display
[2024-05-30] MEDS: clindamycin 600 MG/50 ML PREMIX 100 MG IV (08:31)
--- NOTE | 2024-05-30 09:28 | W.PM.BPON ---
Date of Procedure: 08/17/23 Surgeon: Terence Dale DPM Vocational Nurse Lvn(s): Tonio Patrick Procedure(s) performed: 1) right second hammertoe correction. CPT code 99847 2) right fourth hammertoe correction. CPT code 71660 3) right fifth hammertoe correction. CPT code 98135 4) right second flexor digitorum longus tendon transfer to extensor digitorum brevis. CPT code 84945 5) right third flexor digitorum longus tendon transfer to extensor digitorum brevis. CPT code 42896 Findings of the procedure(s): None Estimated blood loss: 2 mL Specimen(s) removed: None Post-operative diagnosis: Hammer toe of right foot M20.41 Foot pain, right M79.671 Hammertoe of right foot M20.41 Contracture, right foot M24.574
--- NOTE | 2024-05-30 09:28 | P.BOP_ITS ---
Date of Procedure: 08/17/23 Surgeon: Terence Dale DPM Die Cutter Operator(s): Tonio Patrick Procedure(s) performed: 1) right second hammertoe correction. CPT code 65249 2) right fourth hammertoe correction. CPT code 19571 3) right fifth hammertoe correction. CPT code 36910 4) right second flexor digitorum longus tendon transfer to extensor digitorum brevis. CPT code 17125 5) right third flexor digitorum longus tendon transfer to extensor digitorum brevis. CPT code 39158 Findings of the procedure(s): None Estimated blood loss: 2 mL Specimen(s) removed: None Post-operative diagnosis: Hammer toe of right foot M20.41 Foot pain, right M79.671 Hammertoe of right foot M20.41 Contracture, right foot M24.574
--- NOTE | 2024-05-30 09:40 | ANE.PACU2 ---
Inpatient post-anesthesia follow up: Airway intact: Yes Vital signs: Temperature 97.6 F Pulse Rate 63 Respiratory Rate 16 Blood Pressure 131/66 Pulse Oximetry 99 Oxygen Delivery Me thod Room Air Oxygen Flow Rate Fraction of Inspir ed Oxygen Hydration adequate: Yes Nausea and vomiting: No Pain level: 1 Mental status: Baseline
== END | disposition home or self-care (01) ==
PROVIDERS: PCP Family Medicine; Visit Provider Podiatrist Foot & Ankle Surgery
PROC: (CPT 28285; principal; 2024-05-30 09:00)
PROC: (CPT 27691; 2024-05-30 09:00)
DX: M20.41 Other hammer toe(s) (acquired), right foot (principal); M79.671 Pain in right foot; M24.574 Contracture, right foot
CPT/HCPCS: 27691; 27692; 28285 ×3; 73620; 76000; C1713; J2704; J3010; J3490; J7030

== ENCOUNTER → 2024-06-10 08:36 | Outpatient (BNVA) | payer MEDICARE, OTHER, SELFPAY | PROVIDERS: PCP Family Medicine; Visit Provider Anesthesiology Pain Medicine | DX: M47.22 Other spondylosis with radiculopathy, cervical region | CPT/HCPCS: 99214 ==

== ENCOUNTER → 2024-06-12 14:10 | Outpatient (BNVA) | payer MEDICARE, OTHER, SELFPAY | PROVIDERS: PCP Family Medicine; Visit Provider Podiatrist Foot & Ankle Surgery | DX: Z98.890 Other specified postprocedural states (principal) | CPT/HCPCS: 73630; 99024 ==

== ENCOUNTER → 2024-06-26 13:40 | Outpatient (BNVA) | payer MEDICARE, OTHER, SELFPAY | PROVIDERS: PCP Family Medicine; Visit Provider Podiatrist Foot & Ankle Surgery | DX: Z98.890 Other specified postprocedural states (principal) | CPT/HCPCS: 73630; 99024 ==

== ENCOUNTER → 2024-07-14 12:51 | Outpatient (BNVA) | payer MEDICARE, OTHER, SELFPAY | PROVIDERS: PCP Family Medicine; Visit Provider Podiatrist Foot & Ankle Surgery | DX: Z98.890 Other specified postprocedural states (principal) | CPT/HCPCS: 73630; 99024 ==

== ENCOUNTER → 2024-08-07 13:19 | Outpatient (BNVA) | payer MEDICARE, OTHER, SELFPAY | PROVIDERS: PCP Family Medicine; Visit Provider Podiatrist Foot & Ankle Surgery | DX: Z98.890 Other specified postprocedural states (principal) | CPT/HCPCS: 73630; 99024 ==

== ENCOUNTER → 2024-08-20 06:39 | Outpatient (BNVA) | payer MEDICARE, OTHER, SELFPAY | PROVIDERS: PCP Family Medicine; Visit Provider Podiatrist Foot & Ankle Surgery | DX: S90.31XA Contusion of right foot, initial encounter (principal); W19.XXXA Unspecified fall, initial encounter | CPT/HCPCS: 36415; 73630; 80053; 84550; 85025; 85651; 86140; 99213 ==

== ENCOUNTER → 2024-09-08 08:29 | Outpatient (BNVA) | payer MEDICARE, OTHER, SELFPAY | PROVIDERS: PCP Family Medicine; Visit Provider Specialist | DX: M19.011 Primary osteoarthritis, right shoulder (principal); M25.811 Other specified joint disorders, right shoulder | CPT/HCPCS: 73030; 99214 ==

== ENCOUNTER → 2024-09-15 08:36 | Outpatient (BNVA) | payer MEDICARE, OTHER, SELFPAY | PROVIDERS: PCP Family Medicine; Visit Provider Specialist | DX: G56.03 Carpal tunnel syndrome, bilateral upper limbs (principal); Z01.818 Encounter for other preprocedural examination | CPT/HCPCS: 36415; 73130; 80053; 81003; 85025 ==

== ENCOUNTER 2024-09-15 10:56 | Outpatient (CLI) | payer MEDICARE, OTHER, SELFPAY | END 2024-09-15 10:57 | disposition home or self-care (01) | LOC: SPT 10:57 | PROVIDERS: PCP Family Medicine; Visit Provider Specialist | DX: Z46.89 Encounter for fitting and adjustment of other specified devices (principal); G56.03 Carpal tunnel syndrome, bilateral upper limbs | CPT/HCPCS: 99214; L3908 ==

== ENCOUNTER 2024-09-25 08:40 | Day surgery (SDC) | payer MEDICARE, OTHER, SELFPAY ==
[2024-09-25] VITALS (10 sets, daily range): BP systolic 87–146; BP diastolic 52–87; PULSE 63–87; RESP 10–22; TEMP 36.1–37.1; O2SAT 95–100; BMI 33.7
[2024-09-25] MEDS: sodium chloride 0.9% 1,000 ML 30 ML IV (09:08)
[2024-09-25] MEDS: acetaminophen 1,000 MG/100 ML PIGGYBACK 400 MG IV (09:09)
[2024-09-25] MEDS: gabapentin 300 mg Capsule PO (09:10)
[2024-09-25] MEDS: CELEcoxib 200 mg Capsule 400 MG PO (09:10)
--- NOTE | 2024-09-25 09:48 | ANES.PREANE2 ---
Pre-Anesthetic Assessment Height/Weight: Height 5 ft 6 in Weight 209 lb Temp Pulse Resp BP Pulse Ox O2 Del Method 98.7 F 87 18 146/87 98 Room Air 09/25/24 08:53 09/25/24 08:53 09/25/24 08:53 09/25/24 08:53 09/25/24 08:53 09/25/24 08:53 Preop Diagnosis: carpal tunnel syndrome Operation Date: 09/25/24 10:25 Proposed Procedures p RIGHT Carpal Tunnel Release(Right) - Daniella Cantor MD Was Beta Robert taken within 24 hours: N/A Was Clonidine taken within 24 hours: N/A Last intake: Intake Last Liquid Date 09/24/24 Last Liquid Time 20:00 Last Solid Date 09/24/24 Last Solid Time 20:00 Social No alcohol and No tobacco Exam alert, oriented x 3, clear to auscultation bilaterally and regular rate & rhythm Airway Submandibular: within normal limits Cervical ROM: within normal limits Mallampati: Class I Comments: Comments: Edentulous Anesthetic Plan ASA status: 2 Anesthesia: General Other: No prior issues with anesthesia NPO since yesterday Patient denies any cardiac or pulmonary issues. Preop BP 146/87 Takes Adderall at baseline Prior cervical spondylosis Recent labs reviewed and acceptable for procedure Plan for general anesthesia Medications/Allergies Home Medications ?Medication ?Instructions ?Recorded ?Confirmed ?Last Taken ?Type duloxetine 60 mg capsule,delayed 60 mg PO BID 04/26/22 09/24/24 09/18/24 History release (Cymbalta) methylphenidate HCl 5 mg tablet 5 mg PO DAILY 04/26/22 09/24/24 09/18/24 History (Ritalin) furosemide 20 mg tablet 20 mg PO DAILY 05/05/22 09/24/24 09/20/24 History albuterol sulfate 2.5 mg/3 mL 2.5 mg continuous nebulization PRN 04/15/23 09/24/24 1 Month Ago History (0.083 %) solution for nebulization PRN Wheezing ~04/26/24 extra depth orthopedic shoes with #1 ea 12/26/23 09/15/24 Unknown Rx custom molded accommodative orthotics cock up wrist splint, bilateral #1 ea 09/15/24 09/15/24 Unknown Rx Allergies Allergy/AdvReac Type Severity Reaction Status Date / Time Penicillins Allergy stomach Verified 09/24/24 08:12 vancomycin Allergy hallucinati Verified 09/24/24 08:12 ng Current Medications Generic Name Dose Route Start Last Admin Trade Name Freq PRN Reason Stop Dose Admin Sodium Chloride 1,000 mls @ 30 mls/hr 09/25/24 08:45 09/25/24 09:08 Sodium Chloride 0.9% IV 09/26/24 08:44 30 mls/hr .Q24H SPENSER Administration PFSH Anesthesia Social History Smoking and tobacco/nicotine status: never used tobacco/nicotine Alcohol intake: never Marital status: / Data Anesthesia Cardiac Studies: No Data to Display
--- NOTE | 2024-09-25 10:17 | P.HPUD_ITS ---
Surgery/Procedure H&P Update DATE OF PROCEDURE: September 25, 2024 DATE H&P PERFORMED: 09/15/24 H&P UPDATE INFORMATION: I have reviewed H&P completed within last 30 days, I have examined patient prior to procedure, No changes to prior documentation, H&P is in [facility] EMR on date indicated and Risks and benefits of the procedure reviewed PREOP DIAGNOSIS: Right carpal tunnel syndrome PLANNED PROCEDURE: Operation Date: 09/25/24 10:25 Proposed Procedures p RIGHT Carpal Tunnel Release(Right) - Daniella Cantor MD Related Problem List Diagnoses (1) Carpal tunnel syndrome on right:
[2024-09-25] MEDS: ceFAZolin 2,000 mg SDV 2000 MG IVP (10:37)
[2024-09-25] MEDS: BUPivacaine 0.5% INJ 30 mL XX (11:00)
--- NOTE | 2024-09-25 12:01 | PM.OP ---
Operative Report Date of procedure: September 25, 2024 Pre-op diagnosis: Right carpal tunnel syndrome Post-op diagnosis: Right carpal tunnel syndrome Post-op findings: Significant compression across the median nerve Procedure done: Right carpal tunnel release Implants: None Specimens removed/disposition: None Pathology: None Surgeon: Daniella Cantor MD Curbing Stonecutter: None Anesthesia: General (Per LMA, ASA 2) Estimated blood loss (mL): 1 Tourniquet time (min): 18 (At 250 mmHg) IV fluids (mL): 400 Urine output (mL): 0 (No Byrd) Complications: None Findings: Significant compression across the median nerve Condition: stable Disposition: PACU (Then return to same-day surgery for discharge to home) Brief History: This 74-year-old woman presented to the office complaining of bilateral carpal tunnel syndrome. Nerve conduction study verified the carpal tunnel diagnosis with severe entrapment in the right median nerve at the wrist and mild at the left. There was no evidence of radiculopathy. After discussion, the patient wished to proceed with operative intervention in the form of carpal tunnel release. Risks and complications were discussed with her and consents were signed. Questions were answered. Patient was given the opportunity to have questions answered again the morning of surgery. Procedure: The patient was brought to the operating theater. The patient had a general anesthesia, per LMA, ASA 2. The tourniquet was elevated to 250 mmHg for a total tourniquet time of 18 minutes. The patient was also given Ancef 2 g preoperatively. The arm was then prepped and draped with DuraPrep in usual fashion with the arm draped free. A surgical pause was performed. At the time, the surgical pause, we confirmed the site and side of surgery. We also confirmed the patient's identity, appropriate and timely administration of preoperative antibiotics and preoperative surgical markings. An incision was then made along the thenar crease. The incision crossed the wrist joint in a curvilinear fashion. Dissection continued through skin and soft tissues using a scalpel. The palmaris longus was identified along with the transverse carpal ligament. Each of these was released carefully to avoid injury to the median nerve. We were able to dissect gently into the carpal canal which was noted to be quite tight with significant compression across the median nerve. The nerve was visualized and was an hourglass shape. The canal was subsequently palpated to assure there was no bony encroachment upon the canal. There was a quite thickened fibrous tissue within the canal, and this was opened longitudinally as well. The canal was then palpated distally and proximally to assure that my small finger was passed easily without impingement. Finding this to be so, attention was directed to closure. The wound was irrigated with ropivacaine plain. It was then closed with 3-0 nylon in an interrupted mattress fashion. Sterile dressing was then placed consisting of Dermabond, OpSite, fluffed fluffs, sterile soft roll, and an Rashawn wrap. The tourniquet was released after 18 minutes. There were no complications. There were no specimens. The procedure was well tolerated. Plan is the patient will be discharged home. Related Problem List Diagnoses (1) Carpal tunnel syndrome on right:
--- NOTE | 2024-09-25 12:29 | ANE.PACU2 ---
Inpatient post-anesthesia follow up: Airway intact: Yes Vital signs: Temperature 97.3 F Pulse Rate 68 Respiratory Rate 17 Blood Pressure 130/74 Pulse Oximetry 99 Oxygen Delivery Me thod Room Air Oxygen Flow Rate 10 Fraction of Inspir ed Oxygen Hydration adequate: Yes Nausea and vomiting: No Pain level: 1 Mental status: Baseline
== END 2024-09-25 12:30 | disposition home or self-care (01) ==
PROVIDERS: PCP Family Medicine; Visit Provider Specialist
PROC: (CPT 64721; principal; 2024-09-25 10:25)
DX: G56.03 Carpal tunnel syndrome, bilateral upper limbs (principal); Z79.899 Other long term (current) drug therapy; Z88.1 Allergy status to other antibiotic agents; Z88.0 Allergy status to penicillin
CPT/HCPCS: 64721; J0131; J0690; J1100; J2405; J2704; J3010; J3490; J7030; J9999

== ENCOUNTER → 2024-10-10 11:03 | Outpatient (BNVA) | payer MEDICARE, OTHER, SELFPAY | PROVIDERS: PCP Family Medicine; Visit Provider Nurse Practitioner | DX: G56.02 Carpal tunnel syndrome, left upper limb (principal); Z98.890 Other specified postprocedural states | CPT/HCPCS: 99214 ==

== ENCOUNTER 2024-10-28 05:57 | Day surgery (SDC) | payer MEDICARE, OTHER, SELFPAY ==
[2024-10-28] VITALS (10 sets, daily range): BP systolic 124–145; BP diastolic 68–101; PULSE 64–78; RESP 12–17; TEMP 36.1–36.6; O2SAT 96–99; BMI 34.7
[2024-10-28] MEDS: acetaminophen 1,000 MG/100 ML PIGGYBACK 400 MG IV (06:19)
[2024-10-28] MEDS: sodium chloride 0.9% 1,000 ML 30 ML IV (06:19)
[2024-10-28] MEDS: CELEcoxib 200 mg Capsule 400 MG PO (06:19)
[2024-10-28] MEDS: gabapentin 300 mg Capsule PO (06:19)
--- NOTE | 2024-10-28 06:39 | ANES.PREANE2 ---
Pre-Anesthetic Assessment Height/Weight: Height 1.68 m Weight 97.522 kg Temp Pulse Resp BP Pulse Ox O2 Del Method 97.9 F 78 17 143/79 97 Room Air 10/28/24 06:12 10/28/24 06:12 10/28/24 06:12 10/28/24 06:12 10/28/24 06:12 10/28/24 06:14 Operation Date: 10/28/24 07:00 Proposed Procedures p Carpal Tunnel Release(Left) - Daniella Cantor MD Familial anesthetic complications: None Was Beta Robert taken within 24 hours: N/A Was Clonidine taken within 24 hours: N/A Last intake: Intake Last Liquid Date 10/27/24 Last Liquid Time 20:00 Last Solid Date 10/27/24 Last Solid Time 20:00 Social No alcohol and No tobacco Exam alert, oriented x 3, clear to auscultation bilaterally and regular rate & rhythm Airway Mallampati: Class I Dentition: other (none) Pulmonary Asthma Anesthetic Plan ASA status: 2 Anesthesia: General Risk of > 500 ml blood loss (7ml/kg in children): No Medications/Allergies Home Medications ?Medication ?Instructions ?Recorded ?Confirmed ?Last Taken ?Type duloxetine 60 mg capsule,delayed 60 mg PO BID 04/26/22 10/28/24 10/27/24 History release (Cymbalta) furosemide 20 mg tablet 20 mg PO DAILY 05/05/22 10/28/24 10/27/24 History albuterol sulfate 2.5 mg/3 mL 2.5 mg continuous nebulization PRN 04/15/23 10/23/24 1 Month Ago History (0.083 %) solution for nebulization PRN Wheezing ~04/26/24 extra depth orthopedic shoes with #1 ea 12/26/23 10/10/24 Unknown Rx custom molded accommodative orthotics cock up wrist splint, bilateral #1 ea 09/15/24 10/10/24 Unknown Rx methylphenidate HCl 20 mg tablet 20 mg PO BID 10/23/24 10/28/24 10/27/24 History (Ritalin) Allergies Allergy/AdvReac Type Severity Reaction Status Date / Time Penicillins Allergy stomach Verified 10/28/24 06:08 vancomycin Allergy hallucinati Verified 10/28/24 06:08 ng Current Medications Generic Name Dose Route Start Last Admin Trade Name Freq PRN Reason Stop Dose Admin Sodium Chloride 1,000 mls @ 30 mls/hr 10/28/24 06:15 10/28/24 06:19 Sodium Chloride 0.9% IV 10/29/24 06:14 30 mls/hr .Q24H SPENSER Administration PFSH Anesthesia Medical History (Updated 10/13/24 @ 23:01 by DRE Hopkins) Carpal tunnel syndrome, left Surgical History (Updated 10/13/24 @ 23:01 by DRE Hopkins) S/P carpal tunnel release Date of procedure: September 25, 2024 Pre-op diagnosis: Right carpal tunnel syndrome Procedure done: Right carpal tunnel release Surgeon: Daniella Cantor MD Social History Smoking and tobacco/nicotine status: never used tobacco/nicotine Alcohol intake: never Marital status: /
--- NOTE | 2024-10-28 07:02 | W.PM.OPSUD ---
Surgery/Procedure H&P Update DATE OF PROCEDURE: October 28, 2024 DATE H&P PERFORMED: 10/10/24 H&P UPDATE INFORMATION: I have reviewed H&P completed within last 30 days, I have examined patient prior to procedure, No changes to prior documentation, Changes to prior documentation as noted here and Risks and benefits of the procedure reviewed PREOP DIAGNOSIS: Left carpal tunnel syndrome PLANNED PROCEDURE: Operation Date: 10/28/24 07:00 Proposed Procedures p Carpal Tunnel Release(Left) - Daniella Cantor MD Related Problem List Diagnoses (1) Carpal tunnel syndrome, left:
[2024-10-28] MEDS: ceFAZolin 2,000 mg SDV 2000 MG IVP (07:15)
[2024-10-28] MEDS: BUPivacaine 0.5% INJ 30 mL INJECTION (07:36)
--- NOTE | 2024-10-28 08:00 | P.OP_ITS ---
Operative Report Date of procedure: October 28, 2024 Pre-op diagnosis: Left carpal tunnel syndrome Post-op diagnosis: Left carpal tunnel syndrome Post-op findings: Significant compression across the carpal canal Procedure done: Left carpal tunnel release Implants: None Specimens removed/disposition: None Pathology: None Surgeon: Daniella Cantor MD Community Relations Specialist: None Anesthesia: General (Per LMA, ASA 3) Estimated blood loss (mL): 1 Tourniquet time (min): 16 (At 250 mmHg) IV fluids (mL): 500 Urine output (mL): 0 (No Byrd) Complications: None Findings: Severe compression across the carpal canal Condition: stable Disposition: PACU (Then return to same-day surgery for discharge to home) Brief History: This 74-year-old woman presented to the office complaining of bilateral carpal tunnel syndrome. Nerve conduction study verified the carpal tunnel diagnosis with severe entrapment in the right median nerve at the wrist and mild at the left. There was no evidence of radiculopathy. After discussion, the patient wished to proceed with operative intervention in the form of carpal tunnel release. Patient underwent right carpal tunnel release on September 25, 2024, and she presents today for left carpal tunnel release. Risks and complications were discussed with her and consents were signed. Questions were answered. Patient was given the opportunity to have questions answered again the morning of surgery. Procedure: The patient was brought to the operating theater. The patient had a general anesthesia, per LMA, ASA 3. The tourniquet was elevated to 250 mmHg for a total tourniquet time of 16 minutes. The patient was also given Ancef 2 g preoperatively. The arm was then prepped and draped with DuraPrep in usual fashion with the arm draped free. A surgical pause was performed. At the time, the surgical pause, we confirmed the site and side of surgery. We also confirmed the patient's identity, appropriate and timely administration of preoperative antibiotics and preoperative surgical markings. An incision was then made along the thenar crease. The incision crossed the wrist joint in a curvilinear fashion. Dissection continued through skin and soft tissues using a scalpel. The palmaris longus was identified along with the transverse carpal ligament. Each of these was released carefully to avoid injury to the median nerve. We were able to dissect gently into the carpal canal which was noted to be quite tight with significant compression across the median nerve. The nerve was visualized and was an slight hourglass shape. The canal was subsequently palpated to assure there was no bony encroachment upon the canal. The canal was then palpated distally and proximally to assure that my small finger was passed easily without impingement. Finding this to be so, attention was directed to closure. The wound was irrigated with ropivacaine plain. It was then closed with 3-0 nylon in an interrupted mattress fashion. Sterile dressing was then placed consisting of Dermabond, OpSite, fluffed fluffs, sterile soft roll, and an Rashawn wrap. The tourniquet was released after 16 minutes. There were no complications. There were no specimens. The procedure was well tolerated. Plan is the patient will be discharged home. Related Problem List Diagnoses (1) Carpal tunnel syndrome, left:
--- NOTE | 2024-10-28 09:00 | ANE.PACU2 ---
Inpatient post-anesthesia follow up: Airway intact: Yes Vital signs: Temperature 97.2 F Pulse Rate 70 Respiratory Rate 16 Blood Pressure 124/68 Pulse Oximetry 97 Oxygen Delivery Me thod Room Air Oxygen Flow Rate Fraction of Inspir ed Oxygen Hydration adequate: Yes Nausea and vomiting: No Pain level: 1 Mental status: Baseline
== END 2024-10-28 08:58 | disposition home or self-care (01) ==
PROVIDERS: PCP Family Medicine; Visit Provider Specialist
PROC: (CPT 64721; principal; 2024-10-28 07:00)
DX: G56.02 Carpal tunnel syndrome, left upper limb (principal); J45.909 Unspecified asthma, uncomplicated
CPT/HCPCS: 64721; J0131; J0690; J2704; J3010; J3490; J7030; J9999

== ENCOUNTER → 2024-11-07 09:04 | Outpatient (BNVA) | payer MEDICARE, OTHER, SELFPAY | PROVIDERS: PCP Family Medicine; Visit Provider Nurse Practitioner | DX: Z98.890 Other specified postprocedural states (principal); M25.511 Pain in right shoulder | CPT/HCPCS: 99024 ==

== ENCOUNTER 2024-11-27 09:27 | Outpatient (CLI) | payer MEDICARE, OTHER, SELFPAY ==
--- NOTE | 2024-11-27 11:45 | MR_ITS ---
WS: [id number] MRI RIGHT SHOULDER NONCONTRAST TECHNIQUE: Sagittal T2, coronal T1, T2 and proton density imaging. Axial gradient PDE imaging. CLINICAL INFORMATION: Right shoulder pain COMPARISON: MRI 2023 FINDINGS: Advanced degenerative arthritis AC joint with moderate downsloping acromion. Narrowing of the subacromial space. Fluid and edema at the AC joint with synovial thickening. Subacromial spurring impinges the underlying supraspinatus. Tendinopathy supraspinatus with chronic thinning. Undersurface tear distal supraspinatus. Partial thickness intrasubstance tear at the level of the acromion. Normal infraspinatus. Normal teres minor. Subscapularis tendon appears normal.Tiny biceps tendon or biceps tendon remnant in the bicipital groove similar to previous. Tiny intra- articular biceps tendon. Similar-appearing diminutive joint capsule with thickening along the axillary recess can be seen with adhesive capsulitis. Prior healed fracture deformity humeral neck with a small amount of residual edema improved compared to previous. MR/MR shoulder RT wo con* [id number] IMPRESSION: 1. Prior healed fracture deformity humeral neck with a small residual fracture line and edema has improved compared to previous 2. Advanced degenerative arthritis AC joint with narrowing of the subacromial space. 3. Chronic thinning of the supraspinatus with tendinopathy. Undersurface tear distally. Additional partial-thickness intrasubstance tear similar to previous. 4. Rotator cuff is otherwise intact. 5. Tiny biceps tendon remnant is unchanged. 6. Findings suspicious for adhesive capsulitis in the appropriate clinical set ting unchanged.
== END 2024-11-27 09:28 | disposition home or self-care (01) ==
LOC: RAD 09:27
PROVIDERS: PCP Family Medicine; Visit Provider Specialist
DX: M19.011 Primary osteoarthritis, right shoulder (principal); Z87.81 Personal history of (healed) traumatic fracture; R93.7 Abnormal findings on diagnostic imaging of other parts of musculoskeletal system; M67.813 Other specified disorders of tendon, right shoulder; M75.101 Unspecified rotator cuff tear or rupture of right shoulder, not specified as traumatic
CPT/HCPCS: 73221

== ENCOUNTER → 2024-12-08 08:51 | Outpatient (BNVA) | payer MEDICARE, OTHER, SELFPAY | PROVIDERS: PCP Family Medicine; Visit Provider Specialist | DX: M75.01 Adhesive capsulitis of right shoulder (principal); M25.811 Other specified joint disorders, right shoulder; Z01.818 Encounter for other preprocedural examination | CPT/HCPCS: 36415; 80053; 81001; 85025; 99214 ==

== ENCOUNTER → 2025-01-06 07:44 | Outpatient (BNVA) | payer MEDICARE, OTHER, SELFPAY | PROVIDERS: PCP Family Medicine; Visit Provider Family Medicine | DX: Z01.818 Encounter for other preprocedural examination (principal) | CPT/HCPCS: 81003; 93005 ==

== ENCOUNTER 2025-01-13 09:30 | Day surgery (SDC) | payer MEDICARE, OTHER, SELFPAY ==
[2025-01-13] VITALS (10 sets, daily range): BP systolic 129–167; BP diastolic 63–106; PULSE 60–78; RESP 14–19; TEMP 36.2–36.6; O2SAT 94–100; BMI 33.5
[2025-01-13] MEDS: acetaminophen 1,000 MG/100 ML PIGGYBACK 400 MG IV (09:58)
--- NOTE | 2025-01-13 10:28 | ANES.PREANE2 ---
Pre-Anesthetic Assessment Height/Weight: Height 5 ft 6 in Weight 208 lb Temp Pulse Resp BP Pulse Ox O2 Del Method 97.5 F L 78 17 167/106 98 Room Air 01/13/25 09:44 01/13/25 09:44 01/13/25 09:44 01/13/25 09:44 01/13/25 09:44 01/13/25 09:45 Preop Diagnosis: shoulder pain Operation Date: 01/13/25 11:35 Proposed Procedures p Distal Clavicle Resection(Right) - Daniella Cantor MD s RIGHT Shoulder OPEN Acromioplasty(Right) - Daniella Cantor MD s Shoulder Manipulation(Right) - Daniella Cantor MD Was Beta Robert taken within 24 hours: N/A Was Clonidine taken within 24 hours: N/A Last intake: Intake Last Liquid Date 01/12/25 Last Liquid Time 21:00 Last Solid Date 01/12/25 Last Solid Time 19:00 Social No alcohol and No tobacco Exam alert, oriented x 3, clear to auscultation bilaterally and regular rate & rhythm Airway Submandibular: within normal limits Cervical ROM: within normal limits Mallampati: Class I Comments: Comments: edentulous Anesthetic Plan ASA status: 2 Anesthesia: General and Regional (specify below) Other: No prior issues with anesthesia NPO since yesterday Patient denies any cardiac or pulmonary issues. Preop BP 167/106 Takes Adderall at baseline Prior cervical spondylosis Recent labs reviewed and acceptable for procedure Plan for general anesthesia with pre-op block Medications/Allergies Home Medications ?Medication ?Instructions ?Recorded ?Confirmed ?Last Taken ?Type duloxetine 60 mg capsule,delayed 60 mg PO BID 04/26/22 01/12/25 10/27/24 History release (Cymbalta) furosemide 20 mg tablet 20 mg PO DAILY 05/05/22 01/12/25 01/12/25 History albuterol sulfate 2.5 mg/3 mL 2.5 mg continuous nebulization PRN 04/15/23 01/12/25 1 Month Ago History (0.083 %) solution for nebulization PRN Wheezing ~04/26/24 extra depth orthopedic shoes with #1 ea 12/26/23 01/06/25 Unknown Rx custom molded accommodative orthotics cock up wrist splint, bilateral #1 ea 09/15/24 01/06/25 Unknown Rx methylphenidate HCl 20 mg tablet 20 mg PO BID 10/23/24 01/12/25 01/12/25 History (Ritalin) cyanocobalamin (vitamin B-12) 1,000 mcg IM .BID week 01/06/25 01/12/25 01/07/25 History 1,000 mcg/mL injection solution ergocalciferol (vitamin D2) 1,250 50,000 unit PO .WEEKLY 01/06/25 01/12/25 01/05/25 History mcg (50,000 unit) capsule (Vitamin D2) syringe with needle 3 mL 23 x 1 #800 ea 01/06/25 01/06/25 Unknown History (BD Luer-Shakira Syringe) turmeric 400 mg capsule 400 mg PO DAILY 01/12/25 01/12/25 12/24/24 History Allergies Allergy/AdvReac Type Severity Reaction Status Date / Time Penicillins Allergy stomach Verified 01/13/25 09:52 vancomycin Allergy hallucinati Verified 01/13/25 09:52 ng Current Medications Generic Name Dose Route Start Last Admin Trade Name Freq PRN Reason Stop Dose Admin Sodium Chloride 1,000 mls @ 30 mls/hr 01/13/25 09:45 01/13/25 10:02 Sodium Chloride 0.9% IV 01/14/25 09:44 30 mls/hr .Q24H SPENSER Administration PFSH Anesthesia Medical History Carpal tunnel syndrome, left Surgical History S/P carpal tunnel release Date of procedure: October 28, 2024 Pre-op diagnosis: Left carpal tunnel syndrome Procedure done: Left carpal tunnel release Surgeon: Daniella Cantor MD S/P carpal tunnel release Date of procedure: September 25, 2024 Pre-op diagnosis: Right carpal tunnel syndrome Procedure done: Right carpal tunnel release Surgeon: Daniella Cantor MD Social History Smoking and tobacco/nicotine status: never used tobacco/nicotine Alcohol intake: never Marital status: /
--- NOTE | 2025-01-13 10:48 | ANES.PROC ---
Anesthesia Procedures Procedure/Date: 01/13/25 Nerve Block ^: Nerve Block 1: Main Anesthesia: other (100mcg fentanyl given) Time Out Performed: Yes Consent: requested by attending/covering physician and from patient Laterality: Right Nerve block location: interscalene Anesthesia monitors applied: pulse oximetry, EKG, BP cuff and oxygen Nerve block position: supine Anesthetic Used: ropivicaine 0.5% Amount of anesthesia used (mL): 30 Ultrasound used to: recognize landmarks Nerve Stimulator Used?: Yes Interscalene/Femoral BLK: other needle (pjunk 4inch) Injection: neg aspiration of heme Patient Tolerated Procedure: well Complications: none Additional Comments: decadron 4mg added to block
--- NOTE | 2025-01-13 10:49 | SUR.PREOP ---
Timeout was completed at bedside by Dr Carpenter for a right interscalene block. Patient was given 100mcg fentanyl and 30ml 0.5% ropivicaine
--- NOTE | 2025-01-13 10:56 | P.HPUD_ITS ---
Surgery/Procedure H&P Update DATE OF PROCEDURE: January 13, 2025 DATE H&P PERFORMED: 01/06/25 H&P UPDATE INFORMATION: I have reviewed H&P completed within last 30 days, I have examined patient prior to procedure, No changes to prior documentation, H&P is in [facility] EMR on date indicated and Risks and benefits of the procedure reviewed PREOP DIAGNOSIS: Right shoulder impingement and acromioclavicular arthritis PRIMARY INDICATION FOR PROCEDURE: 11/26/24 RIGHT SHOULDER MRI IMPRESSION: 1. Prior healed fracture deformity humeral neck with a small residual fracture line and edema has improved compared to previous 2. Advanced degenerative arthritis AC joint with narrowing of the subacromial space. 3. Chronic thinning of the supraspinatus with tendinopathy. Undersurface tear distally. Additional partial-thickness intrasubstance tear similar to previous. 4. Rotator cuff is otherwise intact. 5. Tiny biceps tendon remnant is unchanged. 6. Findings suspicious for adhesive capsulitis in the appropriate clinical se tting unchanged. PLANNED PROCEDURE: Operation Date: 01/13/25 11:35 Proposed Procedures p RIGHT Shoulder OPEN Acromioplasty(Right) - Daniella Cantor MD s Distal Clavicle Resection(Right) - Daniella Cantor MD s Shoulder Manipulation(Right) - Daniella Cantor MD Related Problem List Diagnoses 1. Impingement of right shoulder: 2. Osteoarthritis of right acromioclavicular joint:
[2025-01-13] MEDS: ceFAZolin 2,000 mg SDV 2000 MG IVP (11:04)
[2025-01-13] MEDS: ceFAZolin 1,000 mg SDV 1000 MG IRRIGATION (11:56)
--- NOTE | 2025-01-13 13:15 | ANE.PACU2 ---
Inpatient post-anesthesia follow up: Airway intact: Yes Vital signs: Temperature 97.8 F Pulse Rate 68 Respiratory Rate 17 Blood Pressure 139/70 Pulse Oximetry 97 Oxygen Delivery Me thod Room Air Oxygen Flow Rate 8 Fraction of Inspir ed Oxygen Hydration adequate: Yes Nausea and vomiting: No Pain level: 1 Mental status: Baseline
--- NOTE | 2025-01-13 13:17 | P.OP_ITS ---
Operative Report Date of procedure: January 13, 2025 Pre-op diagnosis: Right shoulder impingement, acromioclavicular joint osteoarthritis, and frozen shoulder Post-op diagnosis: Right shoulder impingement, acromioclavicular joint osteoarthritis, and frozen shoulder Post-op findings: Right shoulder significant impingement from the acromion, severe degenerative osteoarthritis of the acromioclavicular joint, bursal thickening without significant erythema or inflammation. Procedure done: Right shoulder open acromioplasty, distal clavicle resection, and manipulation Implants: None Specimens removed/disposition: None Pathology: None Surgeon: Daniella Cantor MD Professor Of Biology: TATA Hopkins, his services are required for manipulation, retraction, and closure of the surgical procedure. Anesthesia: General (Intubated with interscalene block preoperatively, ASA 2) Estimated blood loss (mL): 20 IV fluids (mL): 1,200 Urine output (mL): 0 (No Byrd) Complications: None Findings: Significant limitation in range of motion as well as severe impingement from both the acromioclavicular joint and acromion. Condition: stable Disposition: PACU (Then return to same-day surgery for discharge to home) Brief History: This 74-year-old woman had a prior right proximal humerus fracture. The patient healed the fracture, but it was slightly malrotated. Patient had findings consistent with severe impingement. MRI of the shoulder was obtained in November of this year and there was noted to be tendinopathy of the supraspinatus tendon with chronic thinning and an undersurface partial-thickness tear. Remaining subscapularis, teres minor, and infraspinatus were all normal. There was advanced degenerative osteoarthritis of the acromioclavicular joint and downsloping acromion. The patient wished to proceed with distal clavicle resection and acromioplasty along with shoulder manipulation due to her frozen shoulder. She would like to avoid shoulder arthroplasty. Procedure: The patient was brought to the operating theater and underwent general intubated anesthesia, ASA 2. The patient was placed in a beachchair position and subsequently the right upper extremity was prepped and draped in the usual fashion utilizing DuraPrep. The arm was draped free. A surgical pause was performed prior to commencement of the surgical procedure. At the time of the surgical pause, we confirmed the site and side of surgery as well as administration of appropriate preoperative antibiotics Ancef 2 g. MRI was also reviewed at that time. Following the surgical pause, manipulation of the shoulder was accomplished including forward flexion, abduction, as well as internal and external rotation. Following manipulation, attention was directed to the open portion of the procedure. An incision was made at approximately the level of the acromioclavicular joint extending across the anterolateral corner of the acromion and distally as necessary. Care was taken to avoid injury to the axillary nerve by limiting the distal extent of the incision. Dissection continued through skin and soft tissues using a scalpel. Hemostasis was obtained using electrocautery. Soft tissues were elevated off the acromioclavicular joint and acromion. The acromioclavicular joint was exposed. A saw was then used to resect the distal clavicle without difficulty. The undersurface of the clavicle was palpated and was slightly further debrided. A power rasp was used to further smooth the area. When this was felt to be adequately resected, the wound was irrigated. Attention was then directed to closure. An acromioplasty was then accomplished using a combination of a saw and a power rasp. With this, we were able to remove compression caused by the acromion. The rotator cuff was then evaluated to look for tears. There was a thickened bursa without significant inflammation. There was no evidence of rotator cuff tear. The shoulder had been manipulated and was placed again through a range of motion demonstrating no obvious evidence of tear. As there was no significant bursal response other than thickening, bursectomy was not accomplished. The wound was irrigated and closure was accomplished with 0 Vicryl in the capsular tissues overlying the acromioclavicular joint area as well as over the acromion and down into the deltoid muscle. 2-0 Monocryl was used to close the subcutaneous tissues followed by 4-0 Monocryl subcuticular closure. This was followed by Dermabond, Steri-Strips, and OpSite. The patient was placed in a sling and was returned to the recovery room in satisfactory condition. The patient will be discharged to home to follow-up in the office as scheduled. There were no complications and no specimens. Related Problem List Diagnoses 1. Impingement of right shoulder: 2. Osteoarthritis of right acromioclavicular joint:
== END 2025-01-13 14:10 | disposition home or self-care (01) ==
PROVIDERS: PCP Family Medicine; Visit Provider Specialist
PROC: (CPT 23120; principal; 2025-01-13 11:25)
PROC: (CPT 23130; 2025-01-13 11:25)
PROC: (CPT 23130; 2025-01-13 11:25)
DX: M19.011 Primary osteoarthritis, right shoulder (principal); M75.41 Impingement syndrome of right shoulder; M75.01 Adhesive capsulitis of right shoulder; J45.909 Unspecified asthma, uncomplicated
CPT/HCPCS: 23130; 23120; J0131; J0690; J2704; J3010; J3490; J7030; J9999

== ENCOUNTER → 2025-01-28 08:12 | Outpatient (BNVA) | payer MEDICARE, OTHER, SELFPAY | PROVIDERS: PCP Family Medicine; Visit Provider Specialist | DX: Z98.890 Other specified postprocedural states (principal) | CPT/HCPCS: 99024 ==

== ENCOUNTER 2025-04-09 09:58 | Outpatient (CLI) | payer MEDICARE, OTHER, SELFPAY ==
--- NOTE | 2025-04-09 10:12 | MR_ITS ---
WS: [id number] MRI BRAIN WITHOUT CONTRAST HISTORY: HEADACHE COMPARISON: None available. TECHNIQUE: Diffusion imaging, multiplanar T1, T2 and FLAIR imaging obtained. No evidence for acute infarct or hemorrhage. Mckeon-white matter differentiation is normal. Mild atrophy and mild small vessel changes in the supratentorial white matter. No significant cerebellar atrophy. No prior infarcts. Normal hippocampal formations. Ventricles and extra-axial spaces are normal. No inferior displacement of cerebellar tonsils. The sella turcica and pituitary gland are unremarkable. Dural venous sinuses and [place] demonstrate no abnormality on this unenhanced studies. Paranasal sinuses: Clear. Mastoid air cells: Normal. Calvarium and scalp: Intact. MR/MR head wo con* [id number] IMPRESSION: 1. No acute infarcts, hemorrhage or mass effect. 2. Mild cerebral atrophy and small vessel disease. 3. Normal hippocampal formations.
== END 2025-04-09 09:59 | disposition home or self-care (01) ==
LOC: RAD 09:59
PROVIDERS: PCP Family Medicine; Visit Provider Family Medicine
DX: R51.9 Headache, unspecified (principal); I67.89 Other cerebrovascular disease; G31.9 Degenerative disease of nervous system, unspecified
CPT/HCPCS: 70551